=== PATIENT | male | born 1995 | race Caucasian/White ===

== ENCOUNTER 2019-05-31 21:44 | Emergency (ER) | payer BC, SELFPAY ==
--- NOTE | 2019-05-31 22:08 | W.ED.BACK ---
HPI - Back Pain/Injury General: Chief Complaint: Abdominal Pain Stated Complaint: Lower right back pain Time Seen by Provider: 05/31/19 22:08 History of Present Illness: HPI Narrative: Patient comes in today with complaints of right flank pain. Patient reports about 2-1/2 hours prior to arrival to the ER he was laying in bed and got a sudden onset of right flank pain. Patient reports that it does seem to radiate around into his right abdomen. Patient appears well. Patient appears in moderate pain. Associated symptoms: Reports nausea Review of Systems General: Reports: 10 or more systems reviewed and unremarkable except in HPI and below GI: Reports: nausea Musc: Reports: back pain Physical Exam Const: COMMON NORMALS: no apparent distress and oriented x3 GENERAL APPEARANCE: cooperative HENMT: COMMON NORMALS: normocephalic, external ears normal, EAC's normal, TM's normal bilaterally and external nose normal HEAD & SCALP: normal to inspection and normocephalic FACE & SINUS: normal facial exam NOSE: external nose normal GENERAL EAR: hearing not grossly impaired EXTERNAL EAR: Yes external ears normal EXTERNAL AUDITORY CANAL: EAC's normal TYMPANIC MEMBRANE: TM's normal bilaterally MOUTH: oral and palatal mucosa normal THROAT: posterior oropharynx normal Eye: COMMON NORMALS: PERRL and EOMs intact bilaterally PUPIL: Yes PERRL Neck/C-Spine: COMMON NORMALS: full ROM and no lymphadenopathy Lymph: LYMPHATIC: no lymphedema noted Chest: COMMONS NORMALS: inspection of chest normal and palpation of chest normal Resp: COMMON NORMALS: normal respiratory effort and clear to auscultation bilaterally AUSCULTATION: clear to auscultation bilaterally Cardio: COMMON NORMALS: regular rate and regular rhythm RATE: regular rate RHYTHM: regular rhythm GI: COMMON NORMALS: normal to inspection, nondistended, normoactive bowel sounds and non-tender : COMMON NORMALS: Yes no CVA tenderness BLADDER/KIDNEY EXAM: Yes no CVA tenderness Back/Pelvis: COMMON NORMALS: no CVA tenderness and thoracic and lumbar spine normal to inspection Extremity: COMMON NORMALS: normal to inspection GENERAL: No edema Neuro: COMMON NORMALS: oriented x3, moves all extremities and no focal motor deficits Psych: COMMON NORMALS: mental status grossly normal and cooperative Skin: COMMON NORMALS: no rashes or lesions noted GENERAL SKIN EXAM: no rashes or lesions noted Course Vital Signs: Vital signs: Vital Signs Temperature 98.4 F 05/31/19 22:49 Pulse Rate 53 L 06/01/19 00:32 Respiratory Rate 18 06/01/19 00:32 Blood Pressure 181/101 06/01/19 00:32 Pulse Oximetry 95 06/01/19 00:32 MDM - Back Pain/Injury MDM Narrative: Medical decision making narrative: Patient comes in today with complaints of right flank pain. On exam patient has no tenderness in the abdomen. No CVA tenderness. Respirations are even lungs are clear to auscultation. Skin is warm and dry and color is pink. Differential diagnosis includes cholelithiasis, cholecystitis, gastroenteritis, renal colic, ureteral calculi, UTI, pyelonephritis. Laboratory values were significant for a creatinine 1.3. Urine was noticeable for blood. Patient had a mild elevation in white blood cell count. CT scan noted a distal ureteral calculi on the right side. Reviewed exam with patient with recommendations for treatment of kidney stone. Patient will be scheduled with follow-up with Dr. Osborne in the urology clinic. Patient was agreeable to treatment and plan with understanding to return for high fever or uncontrolled pain. Lab Data: Labs: Lab Results 05/31/19 05/31/19 05/31/19 Range/Units 22:15 22:25 22:25 WBC 16.5 H (4.0-10.0) 10^3/ uL RBC 5.14 (4.1-5.3) 10^6/u L Hgb 14.8 (11.7-16.6) g/dL Hct 45.2 (42.0-52.0) % MCV 87.9 (80-94) fL MCH 28.8 (28.0-34.0) pg MCHC 32.7 (30.0-36.0) g/dL RDW 13.1 (12.1-15.1) % Plt Count 241 (130-400) 10^3/c mm MPV 10.3 (7.4-10.4) fL Neut % (Auto) 26.4 % Lymph % (Auto) 63.0 % [place] % (Auto) 9.4 % Eos % (Auto) 0.2 % Baso % (Auto) 0.6 % Neut # (Auto) 4.4 (1.8-7.7) 10^3/u L Lymph # (Auto) 10.4 H (0.8-4.8) 10^3/u L [place] # (Auto) 1.6 H (0.2-0.9) 10^3/u L Eos # (Auto) 0.0 (0.0-0.8) 10^3/u L Baso # (Auto) 0.1 (0.0-0.1) 10^3/u L Nucleated RBC % (a uto) 0 % Nucleated RBCs # 0.0 /100WBC Sodium 142 (136-145) mmol/L Potassium 3.7 (3.5-5.1) mmol/L Chloride 103 (98-107) mmol/L Carbon Dioxide 23 (22-29) mmol/L Anion Gap 19.7 H (5-19) BUN 18 (6-20) mg/dL Creatinine 1.3 H (0.7-1.2) mg/dL GFR Calculation 66.7 L (90-130) mL/min Glucose 139 H (74-109) mg/dL Calcium 9.8 (8.6-10.0) mg/Dl Total Bilirubin 0.6 (0.15-1.2) mg/dL AST 41 H (0-40) U/L ALT 84 H (0-41) U/L Alkaline Phosphata se 65 (40-130) IU/L Total Protein 7.6 (6.6-8.7) g/dL Albumin 3.9 (3.5-5.2) g/dL Globulin 3.7 (1.3-4.6) g/dL Urine Color Straw (Yellow) Urine Appearance Clear (CLEAR) Urine pH 5 (5-7) Ur Specific Gravit y 1.020 (1.005-1.030) Urine Protein Neg (Negative) Urine Glucose (UA) Norm (Normal) Urine Ketones 1+ H (Negative) Urine Occult Blood 3+ H (Negative) Urine Nitrate Negative (Negative) Urine Bilirubin Neg (NEGATIVE) Urine Urobilinogen Norm (Negative) mg/dL Ur Leukocyte Estee ase Negative (Negative) Urine RBC 25-40 H (0-2) /hpf Urine WBC 0-4 H (0-5) /hpf Ur Squamous Epith Cells None (0-5) Urine Bacteria Trace (NONE) Discharge Plan Discharge Patient Disposition: Home, Self-Care Clinical Impression: Calculus of distal right ureter Condition: Stable Prescriptions: New hydrocodone-acetaminophen 5-325 mg tablet 1 tab PO Q6H PRN (Reason: pain) Qty: 10 RF: 0 tamsulosin 0.4 mg capsule 0.4 mg PO DAILY Qty: 7 RF: 0 ondansetron HCl 4 mg tablet 4 mg PO Q8H PRN (Reason: nausea and vomiting) Qty: 10 RF: 0 ketorolac 10 mg tablet 10 mg PO Q6H PRN (Reason: pain) Qty: 10 RF: 0 Discharge Orders: Discharge Order (Routine); Ordered 05/31/19 Ordered By: Jonathan Acosta Referrals: Louise Joy MD [Primary Care Provider] - Discharge Diet: Usual diet Discharge Activity: Resume usual activity Patient Instructions: Renal Colic (ED) Activity Restrictions/Additional Instructions: Drink plenty of water with medications Activity as tolerated Hydrocodone may cause drowsiness, use for pain not controlled with acetaminophen or ketorlac Follow-up with urology Case management will contact you for referral to urology Return to ER for uncontrolled pain or high fever Discharge Date/Time: 06/01/19 00:32 Coding Level of Care Code ED [employer]ter for [facility] Fwd Exam Problem Focused
--- NOTE | 2019-05-31 22:12 | CTR_ITS ---
PROCEDURE INFORMATION: Exam: CT Abdomen And Pelvis Without Contrast Exam date and time: 05/31/2019 10:34 PM Age: 24 years old Clinical indication: Abdominal pain; Flank; Right; Additional info: Right flank pain TECHNIQUE: Imaging protocol: Computed tomography of the abdomen and pelvis without contrast. Axial, coronal and sagittal reformatted images were created and reviewed. Total DLP: 2080.59 mGy-cm Radiation optimization: All CT scans at this facility use at least one of these dose optimization techniques: automated exposure control; mA and/or kV adjustment per patient size (includes targeted exams where dose is matched to clinical indication); or iterative reconstruction. COMPARISON: CT abdomen pelvis w con* [id number] 12/06/2018 9:40 PM FINDINGS: Mediastinum: Small hiatal hernia. Liver: Mild hepatomegaly. Diffuse hepatic steatosis. Gallbladder and bile ducts: No radiodense gallstones. No biliary ductal dilatation. Pancreas: Unremarkable. Spleen: Mild splenomegaly. Adrenals: Unremarkable. Kidneys and ureters: Mild right-sided hydroureteronephrosis and perinephric/periureteral stranding, secondary to a punctate distal right ureteral calculus (axial image 168 and coronal image 35). Stomach and bowel: No bowel wall thickening. No obstruction. No pneumatosis. Appendix: Normal. Intraperitoneal space: No free fluid. No organized fluid collection. No free air. Vasculature: Unremarkable. No aneurysm. Lymph nodes: No pathologically enlarged lymph nodes. Bladder: Mild circumferential urinary bladder wall thickening, likely secondary to underdistention. Reproductive: Unremarkable. Bones/joints: No acute osseous abnormality. Soft tissues: Small, fat containing umbilical hernia. Other findings: Elevated left hemidiaphragm. CT/CT kidney stone [id number] IMPRESSION: 1. Mild right-sided hydroureteronephrosis and perinephric/periureteral stranding, secondary to a punctate distal right ureteral calculus. 2. Additional findings, as above. Radiation Dose CTDIVOL = (mGy): DLP = 2080.59 (mGy-cm)
[2019-05-31 22:28] VITALS: PULSE 61; RESP 20; O2SAT 96
[2019-05-31 22:35] VITALS: BP 209/131
[2019-05-31] MEDS: cloNIDine 0.1 mg Tablet PO (22:35)
[2019-05-31] MEDS: ketorolac 30 mg/mL INJ 15 MG IVP (22:35)
[2019-05-31] MEDS: ondansetron 2 mg/ML SDV 2 mL 4 MG IVP ×2 (22:36→23:30)
[2019-05-31 22:49] VITALS: BP 205/96; PULSE 63; RESP 18; TEMP 36.9; O2SAT 93; BMI 44.9
[2019-05-31 22:55] LABS: Alanine Aminotransferase 84 U/L (0-41); Albumin Level 3.9 g/dL (3.5-5.2); Alkaline Phosphatase 65 IU/L (40-130); Anion Gap 19.7 (5-19); Aspartate Amino Transferase 41 U/L (0-40); Blood Urea Nitrogen 18 mg/dL (6-20); Calcium 9.8 mg/Dl (8.6-10.0); Carbon Dioxide 23 mmol/L (22-29); Chloride 103 mmol/L (98-107); Globulin 3.7 g/dL (1.3-4.6); Glomerular Filtration Rate 66.7 mL/min (90-130); Glucose 139 mg/dL (74-109); Potassium 3.7 mmol/L (3.5-5.1); Sodium 142 mmol/L (136-145); Total Bilirubin 0.6 mg/dL (0.15-1.2); Total Protein 7.6 g/dL (6.6-8.7)
[2019-05-31 22:56] LABS: Basophils # 0.1 10^3/uL (0.0-0.1); Basophils % 0.6 %; Eosinophils % 0.2 %; Hematocrit 45.2 % (42.0-52.0); Hemoglobin 14.8 g/dL (11.7-16.6); Lymphocytes # 10.4 10^3/uL (0.8-4.8); Mean Corpuscular HGB Conc 32.7 g/dL (30.0-36.0); Mean Corpuscular Hemoglobin 28.8 pg (28.0-34.0); Mean Corpuscular Volume 87.9 fL (80-94); Mean Platelet Volume 10.3 fL (7.4-10.4); Monocytes # 1.6 10^3/uL (0.2-0.9); Monocytes % 9.4 %; Neutrophils # 4.4 10^3/uL (1.8-7.7); Neutrophils % 26.4 %; Nucleated Red Blood Cells % 0 %; Platelet Count 241 10^3/cmm (130-400); Red Blood Count 5.14 10^6/uL (4.1-5.3); Red Cell Distribution Width 13.1 % (12.1-15.1); White Blood Count 16.5 10^3/uL (4.0-10.0)
[2019-05-31 23:05] LABS: Urine Appearance Clear (CLEAR); Urine Color Straw (Yellow); pH Urine 5 (5-7)
[2019-05-31 23:06] LABS: Add Urine Culture? Yes; Bacteria Urine TRACE; Bilirubin Urine Neg (NEGATIVE); Blood Urine 3+ (Negative); Glucose Urine UA Norm (Normal); Ketones Urine 1+ (Negative); Leukocyte Esterase Urine Negative (Negative); Nitrate Urine Negative (Negative); Protein Urine Neg (Negative); RBC Urine 25-40 /hpf (0-2); Urobilinogen Urine Norm (Negative); WBC Urine 0-4 /hpf (0-5)
[2019-05-31 23:28] LABS: Slide Review Slide Review Perform
[2019-05-31 23:31] VITALS: RESP 18; O2SAT 96
[2019-05-31] MEDS: morphine 4 mg/mL SDV 1 mL IVP (23:31)
[2019-05-31 23:33] VITALS: BP 191/116; PULSE 57; RESP 18; O2SAT 96
[2019-06-01 00:32] VITALS: BP 181/101; PULSE 53; RESP 18; O2SAT 95
--- NOTE | 2019-06-01 10:35 | DCPLANNER ---
construction area manager had message to schedule a follow up appointment for patient with Dr. Osborne. construction area manager called the office of Dr. Osborne, spoke with Rose, gave clinic patients information. construction area manager was told that patients information would be printed and given to Hillary for review. Clinic will call patient with appointment information. construction area manager will call for appointment information.
--- NOTE | 2019-06-10 12:56 | DCPLANNER ---
landscape manager called the office of Dr. Osborne to confirm if a follow up appointment had been scheduled for patient. landscape manager spoke with Veronica, and was told that patient does need to be seen at this time.
== END 2019-06-01 00:32 | disposition home or self-care (01) ==
PROVIDERS: Emergency Provider Nurse Practitioner Family; PCP Specialist
DX: N20.1 Calculus of ureter (principal)
CPT/HCPCS: 36415; 74176; 80053; 81001; 85025; 87086; 96374; 99282; J1885; J2270; J2405

== ENCOUNTER → 2023-12-22 13:51 | Outpatient (BNVA) | payer OTHER, SELFPAY | PROVIDERS: PCP Family Medicine; Visit Provider Family Medicine | DX: Z00.00 Encounter for general adult medical examination without abnormal findings; E66.9 Obesity, unspecified | CPT/HCPCS: 80053; 80061; 83036; 85025 ==

== ENCOUNTER → 2024-05-19 09:02 | Outpatient (BNVA) | payer OTHER, SELFPAY | PROVIDERS: PCP Family Medicine; Visit Provider Family Medicine | DX: I10 Essential (primary) hypertension (principal); R20.2 Paresthesia of skin | CPT/HCPCS: 80053; 82607; 84443 ==

== ENCOUNTER → 2024-10-26 16:02 | Outpatient (BNVA) | payer OTHER, SELFPAY | PROVIDERS: PCP Family Medicine; Visit Provider Family Medicine | DX: I10 Essential (primary) hypertension (principal); R00.2 Palpitations; R53.83 Other fatigue | CPT/HCPCS: 80053; 84443; 85025 ==